=== PATIENT | male | born 1940 | race Caucasian/White ===

== ENCOUNTER 2016-12-22 08:25 | Outpatient (CLI) | payer MEDICARE, OTHER ==
[2016-12-22 15:07] LABS: BASOPHILS % (AUTO) 0.8 %; EOSINOPHILS # (AUTO) 0.2 10^3/uL (0.0-0.7); EOSINOPHILS % (AUTO) 4.1 %; HCT - HEMATOCRIT 42.8 % (42.0-52.0); HGB - HEMOGLOBIN 14.8 g/dL (14.0-18.0); LYMPHOCYTES # (AUTO) 1.3 10^3/uL (1.5-3.5); MEAN CORPUSCULAR HGB CONC 34.5 g/dL (32.0-36.0); MEAN CORPUSCULAR VOLUME 98.4 fL (80.0-94.0); MEAN PLATELET VOLUME 9.7 fL (7.4-11.4); MONOCYTES # (AUTO) 0.4 10^3/uL (0.0-1.0); MONOCYTES % (AUTO) 8.5 %; NEUTROPHILS % (AUTO) 59.6 %; NUCLEATED RED BLOOD CELLS AUTO 0.1 /100WBC; RED BLOOD COUNT 4.36 10^6/uL (4.70-6.10); RED CELL DISTRIBUTION WIDTH 12.9 % (12.0-15.0); UNCORRECTED WHITE BLOOD COUNT 4.9 x10^3/uL; WHITE BLOOD COUNT 4.9 x10^3/uL (4.8-10.8)
[2016-12-22 15:22] LABS: ALBUMIN/GLOBULIN RATIO 1.5 (1.0-2.2); BILIRUBIN,TOTAL 0.8 mg/dL (0.2-1.0); BUN - BLOOD UREA NITROGEN 15 mg/dL (6-20); CALCIUM 8.9 mg/dL (8.5-10.3); CARBON DIOXIDE - CO2 25 mmol/L (21-32); CHLORIDE 108 mmol/L (101-111); CHOL/HDL RATIO 3.2 (<5.0); CHOLESTEROL 193 mg/dL; GFR - MDRD 73 (>89); GLUCOSE 91 mg/dL (70-100); HDL CHOLESTEROL 61 mg/dL; POTASSIUM 4.1 mmol/L (3.5-5.0); SODIUM 140 mmol/L (135-145); TOTAL PROTEIN 6.8 g/dL (6.7-8.2); TRIGLYCERIDES 49 mg/dL; VLDL CHOLESTEROL 10 mg/dL
[2016-12-22 16:46] LABS: HEMOGLOBIN A1C 0.61 g/dL
== END 2016-12-22 08:26 | disposition home or self-care (01) ==
LOC: LAB.R 08:25
PROVIDERS: ATTEND Internal Medicine
DX: I10 Essential (primary) hypertension (principal); E74.39 Other disorders of intestinal carbohydrate absorption; E03.9 Hypothyroidism, unspecified; R73.01 Impaired fasting glucose
CPT/HCPCS: 80053; 80061; 83036; 84443; 85025

== ENCOUNTER 2017-08-13 08:00 | Outpatient (CLI) | payer MEDICARE, OTHER ==
[2017-08-13 13:22] LABS: HEMOGLOBIN A1C 0.6 g/dL; HEMOGLOBIN A1C % 5.6 % (4.6-6.2)
[2017-08-13 13:28] LABS: CRP - C-REACTIVE PROTEIN < 1.0 mg/dL (0-1.0); GLUCOSE,FASTING 93 mg/dL (70-100)
[2017-08-13 13:31] LABS: THYROID STIMULATING HORMONE 0.62 uIU/mL (0.34-5.60)
[2017-08-15 12:31] LABS: ANA SCREEN NEGATIVE (NEGATIVE)
== END 2017-08-13 08:01 | disposition home or self-care (01) ==
LOC: LAB.R 08:00
PROVIDERS: ATTEND Internal Medicine
DX: G62.9 Polyneuropathy, unspecified (principal); E74.39 Other disorders of intestinal carbohydrate absorption; I10 Essential (primary) hypertension; Z79.899 Other long term (current) drug therapy
CPT/HCPCS: 81599; 82607; 82746; 82947; 83036; 84155; 84165; 84443; 85651; 86038; 86140

== ENCOUNTER 2017-10-03 16:22 | Outpatient (CLI) | payer MEDICARE, OTHER ==
--- NOTE | 2017-10-04 09:40 | XRAY Report ---
TWO VIEW RIGHT HAND: 10/03/2017 CLINICAL INDICATION: Superficial foreign body. 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 There is no evidence of acute fracture. No radiopaque foreign body is appreciated in the soft tissues. IMPRESSION: OSTEOARTHRITIS. NO EVIDENT RADIOPAQUE FOREIGN BODY. TD: 10/04/2017 09:06
== END 2017-10-03 16:23 | disposition home or self-care (01) ==
LOC: DI 16:22
PROVIDERS: ATTEND Nurse Practitioner Primary Care
DX: S60.551A Superficial foreign body of right hand, initial encounter (principal); M19.041 Primary osteoarthritis, right hand

== ENCOUNTER 2018-01-02 16:37 | Outpatient (CLI) | payer MEDICARE, OTHER | END 2018-01-02 16:38 | disposition home or self-care (01) | LOC: LAB 16:37 | PROVIDERS: ATTEND Internal Medicine | DX: M79.604 Pain in right leg (principal) | CPT/HCPCS: 36415; 85379 ==

== ENCOUNTER 2018-02-21 08:10 | Outpatient (CLI) | payer MEDICARE, OTHER ==
[2018-02-21 13:00] LABS: BASOPHILS % (AUTO) 0.9 %; EOSINOPHILS # (AUTO) 0.3 10^3/uL (0.0-0.7); EOSINOPHILS % (AUTO) 5.1 %; HGB - HEMOGLOBIN 14.6 g/dL (14.0-18.0); LYMPHOCYTES # (AUTO) 1.2 10^3/uL (1.5-3.5); MEAN CORPUSCULAR HEMOGLOBIN 33.5 pg (27.0-31.0); MEAN CORPUSCULAR HGB CONC 34.1 g/dL (32.0-36.0); MEAN CORPUSCULAR VOLUME 98.1 fL (80.0-94.0); MEAN PLATELET VOLUME 9.8 fL (7.4-11.4); MONOCYTES # (AUTO) 0.4 10^3/uL (0.0-1.0); MONOCYTES % (AUTO) 8.4 %; NEUTROPHILS % (AUTO) 60.6 %; PLT - PLATELET COUNT 229 10^3/uL (130-450); RED BLOOD COUNT 4.35 10^6/uL (4.70-6.10); RED CELL DISTRIBUTION WIDTH 13.1 % (12.0-15.0)
[2018-02-21 13:17] LABS: HEMOGLOBIN A1C 0.56 g/dL; HEMOGLOBIN A1C % 5.6 % (4.6-6.2)
[2018-02-21 13:19] LABS: ALBUMIN 3.9 g/dL (3.2-5.5); ALBUMIN/GLOBULIN RATIO 1.5 (1.0-2.2); BILIRUBIN,TOTAL 1.2 mg/dL (0.2-1.0); CREATININE 0.8 mg/dL (0.6-1.2); TOTAL PROTEIN 6.5 g/dL (6.7-8.2)
== END 2018-02-21 08:11 | disposition home or self-care (01) ==
LOC: LAB.R 08:10
PROVIDERS: ATTEND Internal Medicine
DX: E74.39 Other disorders of intestinal carbohydrate absorption (principal); G62.9 Polyneuropathy, unspecified; Z72.89 Other problems related to lifestyle; E03.9 Hypothyroidism, unspecified; I10 Essential (primary) hypertension; Z79.899 Other long term (current) drug therapy
CPT/HCPCS: 80053; 83036; 84443; 85025

== ENCOUNTER 2018-04-22 16:02 | Outpatient (CLI) | payer MEDICARE, OTHER ==
[2018-04-22 16:24] LABS: CREATININE 0.9 mg/dL (0.6-1.2)
== END 2018-04-22 16:03 | disposition home or self-care (01) ==
LOC: LAB 16:02
PROVIDERS: ATTEND Physician Assistant Medical
DX: B35.1 Tinea unguium (principal); Z79.899 Other long term (current) drug therapy
CPT/HCPCS: 36415; 82565; 84450; 84460

== ENCOUNTER 2019-05-12 08:05 | Outpatient (CLI) | payer MEDICARE, OTHER ==
[2019-05-12 09:07] LABS: ALBUMIN/GLOBULIN RATIO 1.4 (1.0-2.2); ALKALINE PHOSPHATASE 59 IU/L (42-121); ALT ALANINE AMINOTRANSFERASE 20 IU/L (10-60); AST ASPARTATE AMINOTRANSFERASE 18 IU/L (10-42); BILIRUBIN,TOTAL 0.9 mg/dL (0.2-1.0); BUN - BLOOD UREA NITROGEN 16 mg/dL (6-20); CARBON DIOXIDE - CO2 26 mmol/L (21-32); CHLORIDE 107 mmol/L (101-111); CHOL/HDL RATIO 3.3 (<5.0); CHOLESTEROL 193 mg/dL; CREATININE 1.1 mg/dL (0.6-1.2); GFR - MDRD 65 (>89); GLUCOSE 106 mg/dL (70-100); HDL CHOLESTEROL 59 mg/dL; LDL CHOLESTEROL,CALCULATED 123 mg/dL; LDL/HDL RATIO 2.1 (<3.6); SODIUM 138 mmol/L (135-145); TOTAL PROTEIN 6.8 g/dL (6.7-8.2); VLDL CHOLESTEROL 11 mg/dL
[2019-05-12 09:13] LABS: HB2 TOTAL 14.8 g/dL; HEMOGLOBIN A1C 0.62 g/dL
[2019-05-12 09:19] LABS: THYROID STIMULATING HORMONE 0.62 uIU/mL (0.34-5.60)
[2019-05-12 09:21] LABS: FREE T4 (FREE THYROXINE) 1.15 ng/dL (0.58-1.64)
[2019-05-12 09:22] LABS: BASOPHILS # (AUTO) 0.1 10^3/uL (0.0-0.1); EOSINOPHILS # (AUTO) 0.2 10^3/uL (0.0-0.7); EOSINOPHILS % (AUTO) 3.9 %; HGB - HEMOGLOBIN 14.6 g/dL (14.0-18.0); LYMPHOCYTES # (AUTO) 1.4 10^3/uL (1.5-3.5); LYMPHOCYTES % (AUTO) 28.5 %; MEAN CORPUSCULAR HEMOGLOBIN 33.1 pg (27.0-31.0); MEAN CORPUSCULAR HGB CONC 33.7 g/dL (32.0-36.0); MEAN CORPUSCULAR VOLUME 98.2 fL (80.0-94.0); MEAN PLATELET VOLUME 10.8 fL (7.4-11.4); MONOCYTES # (AUTO) 0.5 10^3/uL (0.0-1.0); MONOCYTES % (AUTO) 9.7 %; NEUTROPHILS # (AUTO) 2.8 10^3/uL (1.5-6.6); NEUTROPHILS % (AUTO) 56.5 %; PLT - PLATELET COUNT 217 10^3/uL (130-450); RED BLOOD COUNT 4.41 10^6/uL (4.70-6.10); RED CELL DISTRIBUTION WIDTH 12.3 % (12.0-15.0); WHITE BLOOD COUNT 4.9 x10^3/uL (4.8-10.8)
== END 2019-05-12 08:06 | disposition home or self-care (01) ==
LOC: LAB 08:05
PROVIDERS: ATTEND Family Medicine
DX: I49.9 Cardiac arrhythmia, unspecified (principal); E03.9 Hypothyroidism, unspecified; E74.39 Other disorders of intestinal carbohydrate absorption; F10.10 Alcohol abuse, uncomplicated; I10 Essential (primary) hypertension; R73.09 Other abnormal glucose
CPT/HCPCS: 36415; 80053; 80061; 83036; 83721; 84439; 84443; 84481; 85025

== ENCOUNTER 2020-10-12 06:49 | Outpatient (CLI) | payer MEDICARE, OTHER ==
[2020-10-12 07:11] LABS: BASOPHILS # (AUTO) 0.1 10^3/uL (0.0-0.1); EOSINOPHILS # (AUTO) 0.3 10^3/uL (0.0-0.7); HCT - HEMATOCRIT 42.3 % (42.0-52.0); HGB - HEMOGLOBIN 14.1 g/dL (14.0-18.0); LYMPHOCYTES # (AUTO) 1.4 10^3/uL (1.5-3.5); LYMPHOCYTES % (AUTO) 27.2 %; MEAN CORPUSCULAR HEMOGLOBIN 33.3 pg (27.0-31.0); MEAN CORPUSCULAR HGB CONC 33.3 g/dL (32.0-36.0); MEAN CORPUSCULAR VOLUME 99.8 fL (80.0-94.0); MEAN PLATELET VOLUME 10.4 fL (7.4-11.4); MONOCYTES # (AUTO) 0.5 10^3/uL (0.0-1.0); MONOCYTES % (AUTO) 9.1 %; NEUTROPHILS # (AUTO) 2.9 10^3/uL (1.5-6.6); NEUTROPHILS % (AUTO) 56.5 %; PLT - PLATELET COUNT 225 10^3/uL (130-450); RED BLOOD COUNT 4.24 10^6/uL (4.70-6.10); RED CELL DISTRIBUTION WIDTH 12.7 % (12.0-15.0); WHITE BLOOD COUNT 5.2 x10^3/uL (4.8-10.8)
[2020-10-12 07:32] LABS: ALBUMIN/GLOBULIN RATIO 1.5 (1.0-2.2); ALKALINE PHOSPHATASE 59 IU/L (42-121); ALT ALANINE AMINOTRANSFERASE 19 IU/L (10-60); AST ASPARTATE AMINOTRANSFERASE 18 IU/L (10-42); BILIRUBIN,TOTAL 0.9 mg/dL (0.2-1.0); BUN - BLOOD UREA NITROGEN 17 mg/dL (6-20); CALCIUM 8.9 mg/dL (8.5-10.3); CARBON DIOXIDE - CO2 25 mmol/L (21-32); CHLORIDE 106 mmol/L (101-111); CHOL/HDL RATIO 3.4 (<5.0); CHOLESTEROL 191 mg/dL; CREATININE 1.1 mg/dL (0.6-1.2); GFR - MDRD 65 (>89); GLUCOSE 105 mg/dL (70-100); HDL CHOLESTEROL 57 mg/dL; LDL CHOLESTEROL,CALCULATED 121 mg/dL; LDL/HDL RATIO 2.1 (<3.6); POTASSIUM 4.3 mmol/L (3.5-5.0); SODIUM 139 mmol/L (135-145); TOTAL PROTEIN 6.7 g/dL (6.7-8.2); TRIGLYCERIDES 64 mg/dL; VLDL CHOLESTEROL 13 mg/dL
[2020-10-12 07:52] LABS: PLATELET MORPHOLOGY RARE GIANT PLATELETS (NORMAL)
[2020-10-15 08:36] LABS: HEPATITIS C ANTIBODY NEGATIVE
== END 2020-10-12 06:50 | disposition home or self-care (01) ==
LOC: LAB 06:49
PROVIDERS: ATTEND Family Medicine
DX: Z12.11 Encounter for screening for malignant neoplasm of colon (principal); E03.9 Hypothyroidism, unspecified; Z13.6 Encounter for screening for cardiovascular disorders; Z11.59 Encounter for screening for other viral diseases
CPT/HCPCS: 36415; 80053; 80061; 82274; 83721; 84443; 85025; 86803

== ENCOUNTER 2021-02-15 14:30 | Outpatient (CLI) | payer MEDICARE, OTHER ==
--- NOTE | 2021-02-15 15:30 | Ultrasound Report ---
PROCEDURE: Bladder INDICATIONS: DISORDER OF BLADDER, RETENTION OF URINE TECHNIQUE: Real-time scanning was performed of the bladder, with image documentation. COMPARISON: None. FINDINGS: Bladder: Pre-void bladder volume is 2257 mL. Post-void residual is 1895 mL. Pre-void images demons trate no intraluminal masses or stones. On pre-void images, of the right and left ureteral jets are noted with color Doppler interrogation. (Of note, ureteral jets may not be detectable in up to 25% o f cases due to insufficient differences in specific gravity between ureteral and bladder urine). IMPRESSION: Large prevoid and postvoid residual urinary bladder volume concerning for bladder outlet obstruction. Reviewed by: Jemma Ziegler MD, PhD on 02/15/2021 3:29 PM PDT Approved by: Jemma Ziegler MD, PhD on 02/15/2021 3:29 PM PDT Station ID: [id number]
== END 2021-02-15 14:31 | disposition home or self-care (01) ==
LOC: DI 14:30
PROVIDERS: ATTEND Physician Assistant
DX: N32.89 Other specified disorders of bladder (principal); R33.9 Retention of urine, unspecified

== ENCOUNTER 2021-03-18 10:14 | Outpatient (CLI) | payer MEDICARE, OTHER ==
--- NOTE | 2021-03-18 13:48 | XRAY Report ---
PROCEDURE: Lumbar Spine 2 View INDICATIONS: LOW BACK PAIN TECHNIQUE: 2 views of the lumbar spine were acquired. COMPARISON: None. FINDINGS: Bones: 5 [id number] vertebrae are present. There is mild diffuse leftward curvature of the lum bar spine. Mild grade 1 retrolisthesis of L1 on L2, L2 on L3, L3 on L4, and L4 on L5. There is otherw ise Normal bony alignment. No vertebral body compression fractures. No suspicious bony lesions. Mu ltilevel disc space narrowing and endplate osteophyte formation. Facet hypertrophy throughout the mid and lower lumbar spine. Soft tissues: Overlying bowel gas pattern is normal. No suspicious soft tissue calcifications. IMPRESSION: Multilevel degenerative disc and facet disease. No acute fracture. No osseous lesion. If symptoms and/or clinical suspicion for pathology continue, further assessment with repeat plain film s, or advanced imaging (e.g., CT, MRI, or bone scan) is recommended for further assessment. Reviewed by: William Jurado MD on 03/18/2021 1:47 PM PST Approved by: William Jurado MD on 03/18/2021 1:47 PM PST Station ID: [id number]
== END 2021-03-18 10:15 | disposition home or self-care (01) ==
LOC: DI 10:14
PROVIDERS: ATTEND Physician Assistant
DX: M51.36 Other intervertebral disc degeneration, lumbar region (principal); M47.816 Spondylosis without myelopathy or radiculopathy, lumbar region; M47.817 Spondylosis without myelopathy or radiculopathy, lumbosacral region

== ENCOUNTER 2022-05-01 09:31 | Outpatient (CLI) | payer MEDICARE, OTHER ==
--- NOTE | 2022-05-01 09:47 | XRAY Report ---
PROCEDURE: Chest 2 View X-Ray INDICATIONS: COUGH TECHNIQUE: 2 views of the chest were acquired. COMPARISON: None FINDINGS: Surgical changes and devices: None. Lungs and pleura: No pleural effusions or pneumothorax. Lungs are clear. Mediastinum: The aorta is prominent and tortuous. The cardiac contours are within normal limits. Bones and chest wall: No suspicious bony abnormalities. Age-appropriate degenerative changes are see n. Mild dextroconvex scoliotic curvature is seen. There is accentuated thoracic kyphosis. Soft ti ssues appear unremarkable. IMPRESSION: No focal infiltrates are seen. Reviewed by: Dixon Tyson MD on 05/01/2022 8:45 AM [facility] Approved by: Dixon Tyson MD on 05/01/2022 8:45 AM [facility] Station ID: [id number]
== END 2022-05-01 09:32 | disposition home or self-care (01) ==
LOC: DI 09:31
PROVIDERS: ATTEND Physician Assistant
DX: R05.3 Chronic cough (principal)

== ENCOUNTER 2022-11-28 07:42 | Outpatient (CLI) | payer MEDICARE, OTHER ==
[2022-11-28 08:13] LABS: CALCIUM 9.4 mg/dL (8.5-10.3); CREATININE 1.1 mg/dL (0.6-1.3); POTASSIUM 4.2 mmol/L (3.5-4.5)
== END 2022-11-28 07:43 | disposition home or self-care (01) ==
LOC: LAB 07:42
PROVIDERS: ATTEND Internal Medicine
DX: E03.9 Hypothyroidism, unspecified (principal); Z79.899 Other long term (current) drug therapy
CPT/HCPCS: 36415; 80048; 84443